=== PATIENT | female | born 1995 | race Native Hawaiian/Other Pacific Islander ===

== ENCOUNTER 2018-03-06 18:27 | Inpatient (IN) | payer OTHER ==
[2018-03-06 18:33] VITALS: BMI 24.3
[2018-03-06] MEDS ORDERED: Sodium Chloride 0.9% 1,000 ML IV ONE (18:44)
[2018-03-06 18:59] LABS: BASO # 0.1 K/uL (0.0-0.2); BASO % 0.2 % (0.0-2.0); HEMOGLOBIN 13.1 g/dL (11.0-16.0); LYMPH # 0.9 K/uL (1.0-4.3); LYMPH % 3.7 % (20.0-40.0); MEAN CELL VOLUME 91.3 fL (81.0-99.0); MEAN CORPUSCULAR HEMOGLOBIN 29.6 pg (27.0-31.0); MEAN CORPUSCULAR HGB CONC 32.4 g/dL (33.0-37.0); MONO # 0.9 K/uL (0.0-0.8); MONO % 3.8 % (0.0-10.0); NEUT # 22.8 K/uL (1.8-7.0); NEUT % 92.3 % (50.0-75.0); NRBC % 0.1 % (0.0-2.0); PLATELET COUNT 266 K/uL (130-400); RBC 4.43 Mil/uL (3.80-5.20); RED CELL DISTRIBUTION WIDTH 13.9 % (11.5-14.5); WHITE BLOOD COUNT 24.8 K/uL (4.8-10.8)
[2018-03-06] MEDS ORDERED: Sodium Chloride 0.9% 1,000 ML ONE (19:02)
[2018-03-06] MEDS ORDERED: Morphine 4 MG/ML VIAL ONE (19:02)
[2018-03-06 19:05] LABS: HCG,QUALITATIVE URINE NEGATIVE (NEGATIVE)
[2018-03-06 19:12] LABS: SQUAMOUS EPITHIAL 1 /hpf (0-5); URINE AMORPHOUS SEDIMENT MODERATE /ul (<OCC); URINE BACTERIA FEW (<OCC); URINE BILIRUBIN NEGATIVE (NEGATIVE); URINE BLOOD NEGATIVE (NEGATIVE); URINE CLARITY Turbid (Clear); URINE COLOR Yellow (YELLOW); URINE GLUCOSE (UA) NORMAL (Normal); URINE LEUKOCYTE ESTERASE NEG Leu/uL (Negative); URINE PROTEIN NEGATIVE (NEGATIVE); URINE UROBILINOGEN NORMAL mg/dL (0.2-1.0)
[2018-03-06] MEDS ORDERED: Piperacillin/Tazobact 3.375 gm 100 ML IVPB STA (19:13)
[2018-03-06 19:21] LABS: ALB/GLOB RATIO 1.3 (1.0-2.1); ALBUMIN 4.8 g/dL (3.5-5.0); ALT/SGPT 29 U/L (9-52); AST/SGOT 25 U/L (14-36); BLOOD UREA NITROGEN 9 mg/dL (7-17); CALCIUM 9.6 mg/dl (8.6-10.4); GFR AFRICAN-AMERICAN > 60; GFR NON-AFRICAN AMERICAN > 60; LIPASE 34 U/L (23-300)
[2018-03-06] MEDS ORDERED: Piperacillin/Tazobact 3.375 gm 100 ML IVPB ONE (19:28)
--- NOTE | 2018-03-06 20:00 | C.PDOC ---
History Of Present Illness 22 year old female presents to the ED for evaluation of right lower quadrant abdominal pain which began two days ago. Patient was referred to the ED by Dr. Cox for further evaluation. Patient denies sexual activity or history of abdominal surgeries. Time Seen by Provider: 03/06/18 18:38 Chief Complaint (Nursing): Abdominal Pain History Per: Patient History/Exam Limitations: no limitations Onset/Duration Of Symptoms: Days (3) Location Of Pain/Discomfort: RLQ Radiation Of Pain To:: None Quality Of Discomfort: "Pain" Additional History Per: Patient Abnormal Vaginal Bleeding: No Past Medical History Reviewed: Historical Data, Nursing Documentation, Vital Signs Vital Signs: Last Vital Signs Temp 99.1 F 03/06/18 22:21 Pulse 95 H 03/06/18 22:21 Resp 18 03/06/18 22:21 BP 104/66 03/06/18 22:21 Pulse Ox 100 03/06/18 22:56 - Medical History PMH: No Chronic Diseases Surgical History: No Surg Hx Family History: States: Unknown Family Hx - Social History Hx Alcohol Use: No Hx Substance Use: No Review Of Systems Gastrointestinal: Positive for: Abdominal Pain (right lower quadrant ) Physical Exam - Physical Exam Appears: Non-toxic, No Acute Distress Skin: Normal Color, Warm, Dry Head: Atraumatic, Normacephalic Eye(s): bilateral: Normal Inspection Oral Mucosa: Moist Neck: Supple Chest: Symmetrical, No Deformity, No Tenderness Cardiovascular: Rhythm Regular, No Murmur Respiratory: Normal Breath Sounds, No Rales, No Rhonchi, No Wheezing Gastrointestinal/Abdominal: Soft, Other (+McBurney's point tenderness ) Extremity: Normal ROM, Capillary Refill (less than 2 seconds ) Neurological/Psych: Oriented x3, Normal Speech, Normal Cognition ED Course And Treatment - Laboratory Results Result Diagrams: 03/06/18 18:55 03/06/18 18:55 Lab Interpretation: Abnormal Urine POC: Negative O2 Sat by Pulse Oximetry: 100 (on RA) Pulse Ox Interpretation: Normal - CT Scan/US CT A/P Other Rad Studies (CT/US): Read By Radiologist, Radiology Report Reviewed CT/US Interpretation: IMPRESSION: Acute appendicitis. No periappendiceal fluid collection/abscess or evidence of perforation. Progress Note: Bloodwork, urinalysis, CT A/P ordered and reviewed. Morphine IVP , Zosyn IVP, Toradol IVP and IV Fluids administered. Reevaluation Time: 21:12 Reassessment Condition: Improved - Physician Consult Information Outcome Of Conversation: 1914 and 2114: d/w Dr. Lancaster, [employer]- ok to admit to Dr. Wong's Service, for AP, plan for Surgery in AM. Disposition Doctor Will See Patient In The: Hospital Counseled Patient/Family Regarding: Studies Performed, Diagnosis - Disposition Disposition: HOSPITALIZED Disposition Time: 21:13 Condition: GOOD - Clinical Impression Clinical Impression: Acute appendicitis - PA / ASSISTANT PASTRY CHEF / Resident Statement MD/DO has reviewed & agrees with the documentation as recorded. - Scribe Statement The provider has reviewed the documentation as recorded by the Scribe (Amaris Hodges) Provider Attestation: All medical record entries made by the Scribe were at my direction and personally dictated by me. I have reviewed the chart and agree that the record accurately reflects my personal performance of the history, physical exam, medical decision making, and the department course for this patient. I have also personally directed, reviewed, and agree with the discharge instructions and disposition.
[2018-03-06 20:07] LABS: BANDS 1 % (0-2); LYMPHOCYTE 4 % (20-40); MONOCYTE 3 % (0-10); NEUTROPHIL 92 % (50-75); PLATELET ESTIMATE NORMAL (NORMAL); TOTAL CELLS COUNTED 100
[2018-03-06] MEDS ORDERED: Iodixanol 320 MG/ML 100 ML BOTTLE IV ONE (20:40)
[2018-03-06] MEDS ORDERED: HYDROmorphone 0.5 mg/0.5 ml ISec IVP PRN (21:12)
[2018-03-06] MEDS: Sodium Chloride 0.9% 1,000 ML IV SCH (21:20)
--- NOTE | 2018-03-06 21:43 | CP.PCM.HP ---
History of Present Illness - History of Present Illness History of Present Illness: H & P 22 F w no sig PMH came with RLQ pain that started 2 days ago. Pain is localized. Sharp . Doesn't radiate. Reports nausea vomiting. Pt had cooked egg yestrday at home. Denies sick contact. Recent travels. Denies diarrhea, dysuriam hematuria, hematemesism hematochezia, CP, SOB, fever. WBC is 25. CT reads acute appendicitis LMP last month PSH denies PMH denies SS non smoker lives with family , student Present on Admission - Present on Admission Any Indicators Present on Admission: No Review of Systems - Review of Systems Review of Systems: See HPI Past Patient History - Past Social History Smoking Status: Never Smoked - PSYCHIATRIC Hx Substance Use: No - SURGICAL HISTORY Hx Surgeries: No - ANESTHESIA Hx Anesthesia: No Meds Allergies/Adverse Reactions: Allergies Allergy/AdvReac Type Severity Reaction Status Date / Time No Known Allergies Allergy Verified 03/06/18 18:33 Physical Exam - Constitutional Appears: No Acute Distress - Head Exam Head Exam: ATRAUMATIC, NORMAL INSPECTION, NORMOCEPHALIC - Eye Exam Eye Exam: EOMI, Normal appearance, PERRL Pupil Exam: NORMAL ACCOMODATION, PERRL - ENT Exam ENT Exam: Mucous Membranes Moist, Normal Exam - Neck Exam Neck exam: Positive for: Normal Inspection - Respiratory Exam Respiratory Exam: Clear to Auscultation Bilateral, NORMAL BREATHING PATTERN - Cardiovascular Exam Cardiovascular Exam: REGULAR RHYTHM - GI/Abdominal Exam GI & Abdominal Exam: Normal Bowel Sounds, Soft, Tenderness Additional comments: RLQ TTP. No rebound Tenderness - Exam Exam: NORMAL INSPECTION - Extremities Exam Extremities exam: Positive for: full ROM, normal inspection - Back Exam Back exam: NORMAL INSPECTION - Neurological Exam Neurological exam: Alert, CN II-XII Intact, Normal Gait, Oriented x3, Reflexes Normal - Psychiatric Exam Psychiatric exam: Normal Affect, Normal Mood - Skin Skin Exam: Dry, Intact, Normal Color, Warm Results - Vital Signs Recent Vital Signs: Last Vital Signs Temp 97.5 F L 03/06/18 18:33 Pulse 91 H 03/06/18 20:33 Resp 18 03/06/18 20:33 BP 103/51 L 03/06/18 20:33 Pulse Ox 100 03/06/18 21:13 - Labs Result Diagrams: 06/21/18 18:55 03/06/18 18:55 Labs: Laboratory Results - last 24 hr 03/06/18 03/06/18 03/06/18 18:55 18:55 18:55 WBC 24.8 H RBC 4.43 Hgb 13.1 Hct 40.5 MCV 91.3 MCH 29.6 MCHC 32.4 L RDW 13.9 Plt Count 266 MPV 8.0 Neut % (Auto) 92.3 H Lymph % (Auto) 3.7 L [place] % (Auto) 3.8 Eos % (Auto) 0.0 Baso % (Auto) 0.2 Neut # (Auto) 22.8 H Lymph # (Auto) 0.9 L [place] # (Auto) 0.9 H Eos # (Auto) 0.0 Baso # (Auto) 0.1 Neutrophils % (Manual) 92 H Band Neutrophils % 1 Lymphocytes % (Manual) 4 L Monocytes % (Manual) 3 Platelet Estimate Normal Sodium 141 Potassium 4.4 Chloride 102 Carbon Dioxide 25 Anion Gap 19 BUN 9 Creatinine 0.6 L Est GFR ( Amer) > 60 Est GFR (Non-Af Amer) > 60 Random Glucose 114 H Calcium 9.6 Total Bilirubin 1.3 AST 25 ALT 29 Alkaline Phosphatase 50 Total Protein 8.6 H Albumin 4.8 Globulin 3.8 Albumin/Globulin Ratio 1.3 Lipase 34 Urine Color Yellow Urine Clarity Turbid Urine pH 5.0 Ur Specific [place] 1.030 Urine Protein Negative Urine Glucose (UA) Normal Urine Ketones 1+ H Urine Blood Negative Urine Nitrate Negative Urine Bilirubin Negative Urine Urobilinogen Normal Ur Leukocyte Esterase Neg Urine WBC (Auto) 1 Urine RBC (Auto) 1 Ur Squamous Epith Cells 1 Amorphous Sediment Moderate H Urine Bacteria Few H Urine HCG, Qual Negative Assessment & Plan - Assessment and Plan (Free Text) Assessment: Acute appendicitis OR tomorrow NPO IVF ABX nausea / pain control HILDA Wong
[2018-03-06] MEDS ORDERED: Piperacill/Tazo 3.375gm in Dex 3.375 GM/50 ML BAG IVPB SCH (22:00)
[2018-03-07] MEDS: Piperacill/Tazo 3.375gm in Dex 3.375 GM/50 ML BAG IVPB SCH ×3 (02:43→23:17)
[2018-03-07 07:30] LABS: BASO % 0.3 % (0.0-2.0); EOS % 0.3 % (0.0-4.0); HEMOGLOBIN 11.5 g/dL (11.0-16.0); LYMPH # 1.5 K/uL (1.0-4.3); LYMPH % 11.4 % (20.0-40.0); MEAN CELL VOLUME 92.6 fL (81.0-99.0); MEAN CORPUSCULAR HEMOGLOBIN 30.5 pg (27.0-31.0); MEAN PLATELET VOLUME 8.8 fL (7.2-11.7); MONO # 1.1 K/uL (0.0-0.8); NEUT # 10.5 K/uL (1.8-7.0); RBC 3.76 Mil/uL (3.80-5.20); RED CELL DISTRIBUTION WIDTH 13.9 % (11.5-14.5); WHITE BLOOD COUNT 13.2 K/uL (4.8-10.8)
[2018-03-07] MEDS: Sodium Chloride 0.9% 1,000 ML IV SCH ×3 (07:45→21:34)
[2018-03-07] MEDS ORDERED: Pneumococcal 23-Valent Vaccine IM ONE (10:00)
[2018-03-07] MEDS ORDERED: Bupivacaine-Epi 0.5%-1:200,000 PF Inj ONE (10:06)
--- NOTE | 2018-03-07 10:12 | CT ---
PROCEDURE: CT Abdomen and Pelvis with contrast HISTORY: abd pain, RLQ, ? AP COMPARISON: None. TECHNIQUE: CT scan of the abdomen and pelvis was performed after administration of intravenous contrast. Oral contrast was not administered. Coronal and sagittal reformatted images were obtained. Contrast dose: 100 mL Visipaque Radiation dose: Total exam DLP = 415.82 MGy-cm. This CT exam was performed using one or more of the following dose reduction techniques: Automated exposure control, adjustment of the mA and/or kV according to patient size, and/or use of iterative reconstruction technique. FINDINGS: LOWER THORAX: The lung bases are clear. LIVER: Normal in size with homogeneous enhancement. No gross lesion or ductal dilatation. GALLBLADDER AND BILE DUCTS: No calcified gallstones. PANCREAS: Normal in size and appearance. No gross lesion or ductal dilatation. SPLEEN: Normal in size and appearance. ADRENALS: No discrete nodule. KIDNEYS AND URETERS: Normal in size with homogeneous enhancement. No hydronephrosis. No solid mass. VASCULATURE: No aortic aneurysm. BOWEL: The small bowel loops are normal in caliber. No bowel dilatation or obstruction. APPENDIX: The appendix is fluid filled distended, measures 13 mm, there is mild enhancement of the wall with minimal inflammatory changes. PERITONEUM: Unremarkable. No free fluid. No free air. LYMPH NODES: Unremarkable. No enlarged lymph nodes. BLADDER: Unremarkable. REPRODUCTIVE: Normal in size. BONES: No acute fracture. OTHER FINDINGS: None. IMPRESSION: Acute appendicitis. No evidence of perforation or abscess. A preliminary report was provided by [facility].
[2018-03-07] MEDS ORDERED: Midazolam 2 MG/2 ML VIAL ONE (10:16)
[2018-03-07] MEDS ORDERED: Propofol 10 mg/ml Inj (20 ML) ONE (10:16)
--- NOTE | 2018-03-07 11:30 | PCM.SURG1 ---
Surgeon's Initial Post Op Note - Surgeon's Notes Surgeon: MD Judith Hogshead Mat Assembler: MADDIE AdanY2 Pre-Operative Diagnosis: Acute appendicitis Operative Findings: inflammed appendix Post-Operative Diagnosis: Acute appendicitis Operation Performed: Laparoscopic appendectomy Specimen/Specimens Removed: appendix Estimated Blood Loss: EBL {In ML}: 10 Date of Surgery/Procedure: 03/07/18 Time of Surgery/Procedure: 10:00
[2018-03-07] MEDS ORDERED: HYDROmorphone 0.5 mg/0.5 ml ISec IVP PRN (11:42)
[2018-03-07] MEDS ORDERED: Sodium Chloride 0.9% 1,000 ML IV ONE (12:30)
[2018-03-07 16:53] VITALS: RESP 20
--- NOTE | 2018-03-07 22:17 | OP ---
PROCEDURE DATE: 03/07/2018 PREOPERATIVE DIAGNOSIS: Acute appendicitis. POSTOPERATIVE DIAGNOSIS: Acute appendicitis. PROCEDURE PERFORMED: Laparoscopic appendectomy. SURGEON: Ubaldo Wong MD. FINDINGS: There is marked area of swelling and induration noted in the base of the appendix and all throughout. The appendix was meso. DESCRIPTION OF PROCEDURE: Under general anesthesia, the patient was prepared and draped in usual sterile fashion. CO2 was insufflated through a Veress needle, inserted in the umbilicus. A 12-mm trocar was then inserted and then under direct vision of 5-mm suprapubic port and a 5-mm left lower quadrant port were inserted. The patient was placed in the Trendelenburg position, turned towards the left side. Appendix was then identified. The base was transected with the aid of the AutoSuture Endo NATHANAEL and so was the meso, was placed and the EndoCatch was extracted through the umbilical port. No bleeding was noted. CO2 was allowed to escape from the peritoneal cavity. Trocars removed. The wounds closed in a routine fashion. Estimated blood loss about 5 mL. No complications. Ubaldo Wong MD
[2018-03-08 01:17] VITALS: O2SAT 99
[2018-03-08] MEDS: Piperacill/Tazo 3.375gm in Dex 3.375 GM/50 ML BAG IVPB SCH (03:41)
[2018-03-08] MEDS: Sodium Chloride 0.9% 1,000 ML IV SCH (03:42)
[2018-03-08 06:51] LABS: BASO % 0.3 % (0.0-2.0); EOS # 0.1 K/uL (0.0-0.7); EOS % 0.8 % (0.0-4.0); HEMOGLOBIN 10.9 g/dL (11.0-16.0); LYMPH # 1.6 K/uL (1.0-4.3); LYMPH % 18.6 % (20.0-40.0); MEAN CELL VOLUME 93.3 fL (81.0-99.0); MEAN CORPUSCULAR HEMOGLOBIN 30.7 pg (27.0-31.0); MEAN CORPUSCULAR HGB CONC 32.9 g/dL (33.0-37.0); MEAN PLATELET VOLUME 8.6 fL (7.2-11.7); MONO # 0.9 K/uL (0.0-0.8); MONO % 9.9 % (0.0-10.0); NEUT # 6.1 K/uL (1.8-7.0); NEUT % 70.4 % (50.0-75.0); RBC 3.53 Mil/uL (3.80-5.20); RED CELL DISTRIBUTION WIDTH 13.9 % (11.5-14.5); WHITE BLOOD COUNT 8.7 K/uL (4.8-10.8)
[2018-03-08 08:23] VITALS: BP 104/64; PULSE 88; TEMP 99.2
--- NOTE | 2018-03-08 08:35 | CP.PCM.DIS ---
Provider - Provider Date of Admission: 03/06/18 21:13 Attending physician: Ubaldo Wong MD Time Spent in preparation of Discharge (in minutes): 30 Hospital Course - Lab Results Lab Results: Most Recent Lab Values WBC 8.7 K/uL (4.8-10.8) 03/08/18 06:41 RBC 3.53 Mil/uL (3.80-5.20) L 03/08/18 06:41 Hgb 10.9 g/dL (11.0-16.0) L 03/08/18 06:41 Hct 33.0 % (34.0-47.0) L 03/08/18 06:41 MCV 93.3 fL (81.0-99.0) 03/08/18 06:41 MCH 30.7 pg (27.0-31.0) 03/08/18 06:41 MCHC 32.9 g/dL (33.0-37.0) L 03/08/18 06:41 RDW 13.9 % (11.5-14.5) 03/08/18 06:41 Plt Count 211 K/uL (130-400) 03/08/18 06:41 MPV 8.6 fL (7.2-11.7) 03/08/18 06:41 Neut % (Auto) 70.4 % (50.0-75.0) 03/08/18 06:41 Lymph % (Auto) 18.6 % (20.0-40.0) L 03/08/18 06:41 [place] % (Auto) 9.9 % (0.0-10.0) 03/08/18 06:41 Eos % (Auto) 0.8 % (0.0-4.0) 03/08/18 06:41 Baso % (Auto) 0.3 % (0.0-2.0) 03/08/18 06:41 Neut # (Auto) 6.1 K/uL (1.8-7.0) 03/08/18 06:41 Lymph # (Auto) 1.6 K/uL (1.0-4.3) 03/08/18 06:41 [place] # (Auto) 0.9 K/uL (0.0-0.8) H 03/08/18 06:41 Eos # (Auto) 0.1 K/uL (0.0-0.7) 03/08/18 06:41 Baso # (Auto) 0.0 K/uL (0.0-0.2) 18 06:41 Neutrophils % (Manual) 92 % (50-75) H 03/06/18 18:55 Band Neutrophils % 1 % (0-2) 03/06/18 18:55 Lymphocytes % (Manual) 4 % (20-40) L 03/06/18 18:55 Monocytes % (Manual) 3 % (0-10) 03/06/18 18:55 Platelet Estimate Normal (NORMAL) 03/06/18 18:55 Sodium 141 mmol/L (132-148) 03/06/18 18:55 Potassium 4.4 mmol/L (3.6-5.2) 03/06/18 18:55 Chloride 102 mmol/L (98-107) 03/06/18 18:55 Carbon Dioxide 25 mmol/L (22-30) 03/06/18 18:55 Anion Gap 19 (10-20) 03/06/18 18:55 BUN 9 mg/dL (7-17) 03/06/18 18:55 Creatinine 0.6 mg/dL (0.7-1.2) L 03/06/18 18:55 Est GFR ( Amer) > 60 03/06/18 18:55 Est GFR (Non-Af Amer) > 60 03/06/18 18:55 Random Glucose 114 mg/dL (65-105) H 03/06/18 18:55 Calcium 9.6 mg/dl (8.6-10.4) 03/06/18 18:55 Total Bilirubin 1.3 mg/dL (0.2-1.3) 03/06/18 18:55 AST 25 U/L (14-36) 03/06/18 18:55 ALT 29 U/L (9-52) 03/06/18 18:55 Alkaline Phosphatase 50 U/L (38-126) 03/06/18 18:55 Total Protein 8.6 g/dL (6.3-8.3) H 03/06/18 18:55 Albumin 4.8 g/dL (3.5-5.0) 03/06/18 18:55 Globulin 3.8 gm/dL (2.2-3.9) 03/06/18 18:55 Albumin/Globulin Ratio 1.3 (1.0-2.1) 03/06/18 18:55 Lipase 34 U/L (23-300) 03/06/18 18:55 Urine Color Yellow (YELLOW) 03/06/18 18:55 Urine Clarity Turbid (Clear) 03/06/18 18:55 Urine pH 5.0 (5.0-8.0) 03/06/18 18:55 Ur Specific [place] 1.030 (1.003-1.030) 03/06/18 18:55 Urine Protein Negative mg/dL (NEGATIVE) 03/06/18 18:55 Urine Glucose (UA) Normal mg/dL (Normal) 03/06/18 18:55 Urine Ketones 1+ mg/dL (NEGATIVE) H 03/06/18 18:55 Urine Blood Negative (NEGATIVE) 03/06/18 18:55 Urine Nitrate Negative (NEGATIVE) 03/06/18 18:55 Urine Bilirubin Negative (NEGATIVE) 03/06/18 18:55 Urine Urobilinogen Normal mg/dL (0.2-1.0) 03/06/18 18:55 Ur Leukocyte Esterase Neg Dre/uL (Negative) 03/06/18 18:55 Urine WBC (Auto) 1 /hpf (0-5) 03/06/18 18:55 Urine RBC (Auto) 1 /hpf (0-3) 03/06/18 18:55 Ur Squamous Epith Cells 1 /hpf (0-5) 03/06/18 18:55 Amorphous Sediment Moderate /ul (<OCC) H 03/06/18 18:55 Urine Bacteria Few (<OCC) H 03/06/18 18:55 Urine HCG, Qual Negative (NEGATIVE) 03/06/18 18:55 - Hospital Course Hospital Course: 22F presented with acute appendicitis Treated with laparoscopic appendectomy Ready to be DC POD1 Discharge Exam - Head Exam Head Exam: ATRAUMATIC, NORMAL INSPECTION, NORMOCEPHALIC - Respiratory Exam Respiratory Exam: Clear to PA & Lateral, NORMAL BREATHING PATTERN - Cardiovascular Exam Cardiovascular Exam: REGULAR RHYTHM, +S1, +S2 - GI/Abdominal Exam GI & Abdominal Exam: Soft. absent: Distended, Firm, Guarding, Rebound, Rigid, Tenderness Additional comments: Glue incision - Neurological Exam Neurological exam: Alert, Oriented x3 - Skin Skin Exam: Dry, Intact, Normal Color, Warm Discharge Plan - Follow Up Plan Condition: GOOD Disposition: HOME/ ROUTINE Additional Instructions: 1) Follow up with Dr. Wong in his office in 1-2 weeks 2) Glue on incisions will fall off on their own 3) OTC medication for pain control Referrals: Ubaldo Wong MD [Staff Provider] -
== END 2018-03-08 11:41 | disposition home or self-care (01) | DRG 883 ==
LOC: C.ER 18:27 → EDBD 18:27 → C.3T 21:13
PROVIDERS: ADMIT Surgery; ATTEND Surgery
PROC: 0DTJ4ZZ Resection of Appendix, Percutaneous Endoscopic Approach (ICD-10-PCS; principal; 2018-03-07 10:30)
DX: K35.80 Unspecified acute appendicitis (principal)